=== PATIENT | male | born 1975 | race Caucasian/White ===

== ENCOUNTER 2018-10-07 03:47 | Inpatient (IN) | payer MEDICAID ==
[~2018-10-07] VITALS: Ht 165.1 cm; Wt 73.7 kg
[2018-10-07 04:49] LABS: HEMATOCRIT. 32.6 % (42.0-52.0); HEMOGLOBIN. 10.5 g/dL (14.0-18.0); MEAN CORPUSCULAR HEMOGLOBIN 24.1 pg (28.0-32.0); MEAN CORPUSCULAR VOLUME 74.7 fL (80.0-94.0); MEAN PLATELET VOLUME 8.5 fl (7.4-10.4); PLATELET 58 x1000/uL (130-400); RED BLOOD CELL COUNT 4.36 mill/uL (4.7-6.1); RED CELL DISTRIBUTION WIDTH 19.9 % (11.6-14.6)
[2018-10-07 04:53] LABS: CHLORIDE 105 mEq/L (98-107)
[2018-10-07 04:57] LABS: ETHANOL BLOOD < 10 mg/dL
[2018-10-07] MEDS ORDERED: VANCOMYCIN 1 G PREMIX 200 ML IV SCH (05:00)
[2018-10-07] MEDS ORDERED: MIDAZOLAM HCL 50 MG in DEXTROSE 5% WATER 40 ML IV ONE (05:00)
[2018-10-07 05:02] LABS: CREATINE KINASE 359 IU/L (39-308)
[2018-10-07 06:09] LABS: PLATELET ESTIMATE DECREASED
[2018-10-07 06:34] LABS: CLARITY URINE CLEAR (CLEAR); COLOR URINE DARK YELLOW (YELLOW); KETONES URINE TRACE (NEGATIVE); LEUKOCYTE ESTERASE URINE 1+ (NEGATIVE); NITRITE URINE NEGATIVE (NEGATIVE); OCCULT BLOOD URINE NEGATIVE (NEGATIVE); PH URINE 6.5 (4.5-8.0); PROTEIN URINE NEGATIVE (NEGATIVE); SPECIFIC GRAVITY URINE 1.021 (1.005-1.030)
[2018-10-07 06:45] LABS: *AMPHETAMINES SCREEN URINE PRESUMTIVE POSITIVE (NEGATIVE); *BARBITURATES SCREEN URINE NEGATIVE (NEGATIVE); *BENZODIAZEPINES SCREEN URINE NEGATIVE (NEGATIVE); *COCAINE SCREEN URINE NEGATIVE (NEGATIVE); METHADONE URINE SCREEN PRESUMTIVE POSITIVE (NEGATIVE); OPIATES URINE SCREEN PRESUMTIVE POSITIVE (NEGATIVE)
[2018-10-07 06:46] LABS: CANNABINOID URINE SCREEN NEGATIVE (NEGATIVE); PHENCYCLIDINE URINE SCREEN PRESUMTIVE POSITIVE (NEGATIVE)
[2018-10-07] MEDS: SODIUM CHLORIDE 0.9% 1,000 ML IV SCH (14:13)
[2018-10-07] MEDS ORDERED: DOCUSATE SODIUM 100MG CAPSULE PO PRN (14:15)
[2018-10-07] MEDS ORDERED: MAGNESIUM/ALUMINUM HYDROXIDE/SIMETHICONE 30ML UDC PO PRN (14:15)
[2018-10-07] MEDS ORDERED: CLONIDINE 0.1MG TABLET PO PRN (14:15)
[2018-10-07] MEDS ORDERED: ONDANSETRON HCL 4MG/2ML INJ IV PRN (14:15)
[2018-10-07] MEDS ORDERED: ACETAMINOPHEN 325MG TABLET PO PRN (14:15)
[2018-10-07] MEDS ORDERED: IPRATROPIUM/ALBUTEROL 0.5-3(2.5)MG/3ML NEB INH PRN (14:15)
[2018-10-07] MEDS ORDERED: KCL 20MEQ/100ML PREMIX 100 ML IV SCH (20:15)
[2018-10-07 20:35] LABS: TOTAL IRON BINDING CAPACITY 329 ug/dL (250-450)
[2018-10-07] MEDS: FAMOTIDINE 20MG TABLET PO SCH (21:19)
[2018-10-07 22:22] LABS: FOLIC ACID (FOLATE) SERUM 19.6 ng/mL (>5.38)
[2018-10-07] MEDS: KETOROLAC 15MG/ML VIAL IV PRN (22:53)
[2018-10-07] MEDS ORDERED: ZOLPIDEM TARTRATE 5MG TABLET PO PRN (23:44)
[2018-10-08 00:08] VITALS: BP 121/69
[2018-10-08] MEDS: SODIUM CHLORIDE 0.9% 1,000 ML IV SCH (01:50)
[2018-10-08 04:00] VITALS: BP 112/59
[2018-10-08] MEDS ORDERED: METH-611 PO (04:52)
[2018-10-08] MEDS ORDERED: CLON2TAB PO (04:53)
[2018-10-08 08:00] VITALS: BP 96/40
[2018-10-08] MEDS: KETOROLAC 15MG/ML VIAL IV PRN (08:17)
[2018-10-08] MEDS: FAMOTIDINE 20MG TABLET PO SCH (08:18)
[2018-10-08] MEDS ORDERED: ENOXAPARIN 40MG/0.4ML SYR SUBCUT SCH (09:00)
[2018-10-08 12:00] VITALS: BP 104/52
[2018-10-08 12:15] VITALS: BP 104/52
== END 2018-10-08 13:20 | disposition home or self-care (01) | DRG 812 ==
LOC: ER 03:47 → EDBEDREQ 05:26 → EDBEDREQTM 05:26 → ENRESERV 22:59 → 5WST 23:33
PROVIDERS: ADMIT Internal Medicine; ATTEND Internal Medicine
DX: T43.621A Poisoning by amphetamines, accidental (unintentional), initial encounter (principal); G92 Toxic encephalopathy; M62.82 Rhabdomyolysis; T40.3X1A Poisoning by methadone, accidental (unintentional), initial encounter; T40.601A Poisoning by unspecified narcotics, accidental (unintentional), initial encounter; D63.8 Anemia in other chronic diseases classified elsewhere; E87.6 Hypokalemia; L03.90 Cellulitis, unspecified; Y92.89 Other specified places as the place of occurrence of the external cause; Z71.51 Drug abuse counseling and surveillance of drug abuser
CPT/HCPCS: 36415; 71045; 80305; 80320; 82140; 82550; 82607; 82746; 82962; 83036; 83540; 83550; 83605; 84484; 93005; 96365; 96366; 99285; J1650; J1885; J2250; J3370; J3480; J7060; G0480